=== PATIENT | female | born 2005 | race Caucasian/White ===

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

== ENCOUNTER 2023-05-21 17:34 | Emergency (ER) | payer OTHER, BC ==
[2023-05-21 17:53] LABS: APPEARANCE,URINE CLEAR (CLEAR); BILIRUBIN,URINE NEGATIVE (NEGATIVE); COLOR,URINE YELLOW (YELLOW); GLUCOSE,URINE NEGATIVE (NEGATIVE); KETONES,URINE NEGATIVE (NEGATIVE); LEUKOCYTE ESTERASE,URINE NEGATIVE (NEGATIVE); NITRITE,URINE NEGATIVE (NEGATIVE); OCCULT BLOOD,URINE TRACE-INTACT (NEGATIVE); PROTEIN,URINE NEGATIVE (NEGATIVE); UROBILINOGEN,URINE 0.2 EU/dL (0.2-1.0)
[2023-05-21 17:59] LABS: AMORPHOUS SEDIMENT,URINE RARE; BACTERIA,URINE MODERATE; EPITHELIAL CELLS,URINE FEW; MUCUS,URINE NOT SEEN; RBC,URINE 0-5 (0-5); WBC,URINE 0-5 (0-5)
[2023-05-21 18:10] LABS: BASOPHILS ABSOLUTE AUTO 0.08 K/uL (0.00-0.10); BASOPHILS PERCENT AUTO 1.4 % (0.1-1.3); EOSINOPHILS ABSOLUTE AUTO 0.11 K/uL (0.00-0.40); EOSINOPHILS PERCENT AUTO 1.9 % (0.0-5.4); HEMATOCRIT 35.4 % (34.3-46.0); HEMOGLOBIN 11.1 g/dL (11.2-15.5); IMMATURE GRAN ABSOLUTE AUTO 0.01 K/uL (0.00-0.23); IMMATURE GRAN PERCENT AUTO 0.2 % (0.0-0.7); LYMPHOCYTES ABSOLUTE AUTO 2.22 K/uL (0.8-3.3); LYMPHOCYTES PERCENT AUTO 38.2 % (11.4-47.7); MEAN CORPUSCULAR HEMOGLOBIN 23.4 pg (31.6-35.5); MEAN CORPUSCULAR HGB CONC 31.4 g/dL (31.6-35.5); MEAN CORPUSCULAR VOLUME 74.5 fL (81.4-99.0); MONOCYTES ABSOLUTE AUTO 0.42 K/uL (0.20-0.90); MONOCYTES PERCENT AUTO 7.2 % (3.3-12.6); NEUTROPHILS ABSOLUTE AUTO 2.97 K/uL (1.0-7.6); NEUTROPHILS PERCENT AUTO 51.1 % (40.0-78.1); PLATELET COUNT,PLT 297 K/uL (130-375); RED BLOOD CELL COUNT 4.75 M/uL (3.77-5.24); WHITE BLOOD CELL COUNT,WBC 5.8 K/uL (3.2-11.0)
[2023-05-21 18:31] LABS: A/G RATIO 1.1 (1.2-2.2); ALANINE AMINOTRANSFERASE,ALT 22 U/L (12-78); ALKALINE PHOSPHATASE 45 U/L (46-116); ANION GAP 11.1 mmol/L (5.0-14.0); ASPARTATE AMNIOTRANSFERASE,AST 16 U/L (15-37); BILIRUBIN TOTAL 0.4 mg/dL (0.2-1.0); BLOOD UREA NITROGEN,BUN 8 mg/dL (7-18); C-REACTIVE PROTEIN <0.05 mg/dL (0.0-0.3); CALCIUM 8.7 mg/dL (8.5-10.1); CARBON DIOXIDE,CO2 23 mmol/L (21-32); CHLORIDE,CL 106 mmol/L (100-108); CREATININE 0.9 mg/dL (0.6-1.0); ESTIMATED GFR 94 mL/min (>60); GLUCOSE RANDOM 87 mg/dL (74-106); POTASSIUM,K 3.8 mmol/L (3.6-5.2); PROTEIN TOTAL,TP 7.6 g/dL (6.4-8.2); SODIUM,NA 140 mmol/L (140-148)
== END 2023-05-21 18:55 | disposition home or self-care (01) ==
LOC: JP.ED 17:34
DX: D50.9 Iron deficiency anemia, unspecified (principal); R10.31 Right lower quadrant pain
CPT/HCPCS: 36415; 80053; 81001; 81025; 83690; 85025; 86140; 99283; 99284

== ENCOUNTER 2023-09-10 11:19 | Emergency (ER) | payer OTHER ==
[2023-09-10 13:00] LABS: BASOPHILS PERCENT AUTO 1.5 % (0.1-1.3); EOSINOPHILS ABSOLUTE AUTO 0.08 K/uL (0.00-0.40); EOSINOPHILS PERCENT AUTO 1.2 % (0.0-5.4); HEMATOCRIT 39.2 % (34.3-46.0); HEMOGLOBIN 12.7 g/dL (11.2-15.5); IMMATURE GRAN PERCENT AUTO 0.3 % (0.0-0.7); LYMPHOCYTES ABSOLUTE AUTO 2.43 K/uL (0.8-3.3); MEAN CORPUSCULAR HEMOGLOBIN 25.5 pg (31.6-35.5); MEAN CORPUSCULAR HGB CONC 32.4 g/dL (31.6-35.5); MEAN CORPUSCULAR VOLUME 78.7 fL (81.4-99.0); MONOCYTES ABSOLUTE AUTO 0.39 K/uL (0.20-0.90); MONOCYTES PERCENT AUTO 5.8 % (3.3-12.6); NEUTROPHILS ABSOLUTE AUTO 3.73 K/uL (1.0-7.6); NEUTROPHILS PERCENT AUTO 55.2 % (40.0-78.1); PLATELET COUNT,PLT 316 K/uL (130-375); RED BLOOD CELL COUNT 4.98 M/uL (3.77-5.24); WHITE BLOOD CELL COUNT,WBC 6.8 K/uL (3.2-11.0)
[2023-09-10 13:02] LABS: APPEARANCE,URINE SLIGHTLY CLOUDY (CLEAR); BILIRUBIN,URINE NEGATIVE (NEGATIVE); COLOR,URINE YELLOW (YELLOW); GLUCOSE,URINE NEGATIVE (NEGATIVE); KETONES,URINE NEGATIVE (NEGATIVE); LEUKOCYTE ESTERASE,URINE NEGATIVE (NEGATIVE); NITRITE,URINE POSITIVE (NEGATIVE); OCCULT BLOOD,URINE NEGATIVE (NEGATIVE); PH,URINE 6.5 (5.0-8.0); PROTEIN,URINE NEGATIVE (NEGATIVE); UROBILINOGEN,URINE 0.2 EU/dL (0.2-1.0)
[2023-09-10 13:07] LABS: AMPHETAMINES SCREEN, URINE NEGATIVE (NEGATIVE); BARBITURATE SCREEN,URINE NEGATIVE (NEGATIVE); BENZODIAZEPINES SCREEN,URINE NEGATIVE (NEGATIVE); METHADONE SCREEN, URINE NEGATIVE (NEGATIVE); METHAMPHETAMINES SCREEN, URINE NEGATIVE (NEGATIVE); OXYCODONE SCREEN,URINE NEGATIVE (NEGATIVE); PROPOXYPHENE SCREEN,URINE NEGATIVE (NEGATIVE); THC SCREEN,URINE 50 NG/ML NEGATIVE (NEGATIVE)
[2023-09-10 13:09] LABS: IMMATURE GRAN ABSOLUTE AUTO 0.02 K/uL (0.00-0.23)
[2023-09-10 13:12] LABS: AMORPHOUS SEDIMENT,URINE NOT SEEN; BACTERIA,URINE MANY; EPITHELIAL CELLS,URINE FEW; MUCUS,URINE NOT SEEN; RBC,URINE 0-5 (0-5); WBC,URINE 0-5 (0-5)
[2023-09-10 13:30] LABS: ANION GAP 12.1 mmol/L (5.0-14.0); CALCIUM 9.6 mg/dL (8.5-10.1); CREATININE 0.9 mg/dL (0.6-1.0); EST CRCL DRUG DOSING (CG) 78.23 mL/min; TROPONIN I HIGH SENSITIVITY 5.9 pg/mL (<=60.3); TSH ULTRASENSITIVE 1.097 uIU/mL (0.358-3.740)
== END 2023-09-10 14:38 | disposition home or self-care (01) ==
LOC: JP.ED 11:19
DX: R55 Syncope and collapse (principal); N30.00 Acute cystitis without hematuria; Z79.899 Other long term (current) drug therapy
CPT/HCPCS: 36415; 70450; 71046; 71046-26; 80048; 80305-QW; 81001; 81025; 84443; 84484; 85025; 93005; 93010; 99284